=== PATIENT | female | born 1990 | race Caucasian/White ===

== ENCOUNTER 2017-06-19 19:45 | Observation (INO) | payer OTHER ==
[2017-06-19 20:48] LABS: Amphetamine,Urine NEG. (NEGATIVE); Barbiturate,Urine NEG. (NEGATIVE); Benzodiazepine,Urine NEG. (NEGATIVE); Cocaine,Urine NEG. (NEGATIVE); Methadone,Urine NEG. (NEGATIVE); Opiate,Urine NEG. (NEGATIVE); PCP,Urine NEG. (NEGATIVE); THC,Urine NEG. (NEGATIVE)
[2017-06-19] MEDS ORDERED: Sodium Chloride 0.9% 1000 ML 1,000 ML IV STA (21:11)
[2017-06-19 21:17] LABS: Appearance SLIGHTLY CLOUDY (CLEAR); Bilirubin NEGATIVE (NEGATIVE); Blood TRACE NON-HEM Ery/ul (0-5); Glucose NEGATIVE (NEGATIVE); Ketones NEGATIVE (NEGATIVE); Leukocyte Esterase NEGATIVE (NEGATIVE); Nitrite NEGATIVE (NEGATIVE); Ph 7.5 (5-6); Protein,Urine Dip TRACE (Negative); Urobilinogen NORMAL mg/dL (0-1)
[2017-06-19 21:18] LABS: Bacteria RARE /HPF (NEGATIVE); Epithelial Cells FEW /HPF (FEW); WBC 0-2 /HPF (0-5)
[2017-06-19] MEDS ORDERED: BRETHINE 1 MG/ML SQ PRN (22:27)
[2017-06-19] MEDS: Lactated Ringers 1,000 ML IV SCH (22:34)
[2017-06-19] MEDS: PROCARDIA 10 MG PO SCH (23:11)
[2017-06-20] MEDS ORDERED: TYLENOL 325 MG PO PRN (00:58)
[2017-06-20] MEDS: Lactated Ringers 1,000 ML IV SCH (06:33)
[2017-06-20] MEDS: PROCARDIA 10 MG PO SCH (07:39)
[2017-06-20] MEDS ORDERED: Celestone Soluspan 6MG/ML IM ONE (08:51)
[2017-06-20 10:30] VITALS: BP 130/66; PULSE 96
== END 2017-06-20 09:15 | disposition home or self-care (01) ==
LOC: UNDOADMOB 19:45 → OB 19:45 → UNDODISOB 06-20 09:15
PROVIDERS: ADMIT Family Medicine; ATTEND Family Medicine
DX: Z34.83 Encounter for supervision of other normal pregnancy, third trimester (principal)
CPT/HCPCS: 80307; 81000; G0378; J0702; A9270-GY

== ENCOUNTER 2017-06-25 10:04 | Observation (INO) | payer OTHER ==
[2017-06-25] MEDS ORDERED: Lactated Ringers 1,000 ML IV ONE (13:03)
[2017-06-25] MEDS ORDERED: BRETHINE 1 MG/ML SQ ONE (13:03)
[2017-06-25] MEDS ORDERED: Zofran 4 MG/2 ML VIAL IV ONE (13:37)
[2017-06-25] MEDS ORDERED: PROCARDIA 10 MG PO ONE (14:29)
[2017-06-25 16:00] VITALS: BP 128/73; PULSE 108
== END 2017-06-25 15:55 | disposition home or self-care (01) ==
LOC: OB 10:04
PROVIDERS: ADMIT Family Medicine; ATTEND Family Medicine
DX: Z34.83 Encounter for supervision of other normal pregnancy, third trimester (principal)
CPT/HCPCS: G0378; J2405; A9270-GY

== ENCOUNTER 2017-07-30 09:55 | Observation (INO) | payer OTHER ==
[2017-07-30 10:54] VITALS: BP 124/75; PULSE 104
--- NOTE | 2017-07-30 11:07 | XRAY ---
Indication: Evaluate LAURA. Limited OB ultrasound performed to evaluate LAURA. Four-quadrant LAURA is 13.6 cm, previously 19 cm on June 09, 2017.
== END 2017-07-30 10:45 | disposition home or self-care (01) ==
LOC: OB 09:55
PROVIDERS: ADMIT Family Medicine; ATTEND Family Medicine
DX: Z34.83 Encounter for supervision of other normal pregnancy, third trimester (principal)
CPT/HCPCS: 76815; G0378; 59025

== ENCOUNTER 2017-08-06 09:54 | Inpatient (IN) | payer OTHER ==
[2017-08-06] MEDS: Lactated Ringers 1,000 ML IV SCH ×2 (12:00→13:25)
[2017-08-06] MEDS ORDERED: BICITRA 30 ML CUP PO SCH (12:45)
[2017-08-06] MEDS ORDERED: Pepcid 20 MG VIAL IV SCH (12:45)
[2017-08-06] MEDS ORDERED: Reglan 10 MG/2 ML IV SCH (12:45)
[2017-08-06] MEDS ORDERED: CEFAZOLIN 2 GM-D5W BAG** 2 GM/50 ML ML IV SCH (13:00)
[2017-08-06] MEDS ORDERED: KEFZOL 1 GM ONE (13:18)
[2017-08-06] MEDS ORDERED: Lactated Ringers 1,000 ML IV ONE (13:19)
[2017-08-06 13:59] LABS: Hematocrit 29.3 % (35-47); Hemoglobin 9.4 gm/dl (12.0-16.0); Mean Cell Volume 82.5 fl (78-100); Mean Corpuscular Hgb Concent. 32.1 g/dl (32-36); Mean Platelet Volume 9.9 fl (6-9.5); Platelet Count 225 K/mm3 (150-450); Red Blood Count 3.55 M/mm3 (4.1-5.4); White Blood Count 9.4 K/mm3 (4.0-10.5)
[2017-08-06] MEDS ORDERED: Sodium Chloride 0.9% 10 ML FLUSH Syringe IJ PRN (14:04)
[2017-08-06] MEDS ORDERED: CORTISONE 1% CREAM TP PRN (14:04)
[2017-08-06] MEDS ORDERED: TUCKS TP PRN (14:04)
[2017-08-06] MEDS ORDERED: Anucort-HC SUPPOSITORY PR PRN (14:04)
[2017-08-06] MEDS ORDERED: Mylicon 80MG PO PRN (14:04)
[2017-08-06] MEDS ORDERED: Dulcolax 10 MG SUPP PR PRN (14:04)
[2017-08-06] MEDS ORDERED: LANSINOH 40 GM TOP PRN (14:04)
[2017-08-06] MEDS ORDERED: TYLENOL EXTRA STRENGTH 500 MG PO PRN (14:04)
[2017-08-06] MEDS ORDERED: Ambien 10 MG PO PRN (14:04)
[2017-08-06 14:08] LABS: Mean Corpuscular Hemoglobin 26.4 pg (26-32)
[2017-08-06 14:13] LABS: PTT 26.7 SECONDS (25.3-37.0)
[2017-08-06 14:47] LABS: ABO TYPING A; Antibody Screen NEGATIVE (NEGATIVE); RH TYPING POSITIVE
[2017-08-06 14:58] LABS: Appearance CLEAR (CLEAR); Glucose 250 mg/dL (NEGATIVE); Ketones NEGATIVE (NEGATIVE); Leukocyte Esterase NEGATIVE (NEGATIVE); Nitrite NEGATIVE (NEGATIVE); Protein,Urine Dip NEGATIVE (Negative)
[2017-08-06 14:59] LABS: Bilirubin NEGATIVE (NEGATIVE); Blood NEGATIVE Ery/ul (0-5); Urobilinogen NORMAL mg/dL (0-1)
[2017-08-06] MEDS ORDERED: Nubain 10 MG/ML IV PRN (15:00)
[2017-08-06] MEDS ORDERED: HOLD NARCOTIC ANALGESICS AND SEDATIVES X24 HR MC PRN (15:00)
[2017-08-06] MEDS ORDERED: CLARITIN 10 MG PO PRN (15:00)
[2017-08-06] MEDS ORDERED: BENADRYL 50 MG/ML IV PRN (15:00)
[2017-08-06] MEDS ORDERED: Narcan 0.4 MG/ML IV PRN (15:00)
[2017-08-06] MEDS ORDERED: DEMEROL 50 MG IV PRN (15:00)
[2017-08-06] MEDS ORDERED: MORPHINE SULFATE 2 MG INJ IV PRN (15:00)
[2017-08-06 15:27] LABS: Amphetamine,Urine NEGATIVE (NEGATIVE); Barbiturate,Urine NEGATIVE (NEGATIVE); Benzodiazepine,Urine NEGATIVE (NEGATIVE); Cocaine,Urine NEGATIVE (NEGATIVE); Methadone,Urine NEGATIVE (NEGATIVE); Opiate,Urine NEGATIVE (NEGATIVE); PCP,Urine NEGATIVE (NEGATIVE); THC,Urine NEGATIVE (NEGATIVE)
--- NOTE | 2017-08-06 15:38 | OP ---
SURGERY DATE/TIME: 08/06/2017 8885 PREOPERATIVE DIAGNOSES: 1) History of prior section. 2) Term intrauterine in early labor. POSTOPERATIVE DIAGNOSES: 1) History of prior section. 2) Term intrauterine in early labor. PROCEDURE: Repeat low transverse section. SURGEON: Flash Velasquez M.D. ESTIMATED BLOOD LOSS: 400 cc. IV FLUIDS: 1300 cc of crystalloid. URINE OUTPUT: 150 cc of clear straw-colored urine. ANESTHESIA: Spinal by Luis Daniel Westbrook CRNA. SPECIMENS: None. DESCRIPTION OF PROCEDURE: After informed written consent was obtained, the patient was taken to the operating room. She underwent spinal anesthesia and was prepped and draped in the usual sterile fashion. Adequate level of anesthesia was confirmed. Then a low transverse skin incision was made by knife and carried down through the subcutaneous fat to the level of the fascia. The fascia was nicked on both sides of the midline and extended in horizontal fashion with curved Kilpatrick scissors. The superior free edge of the fascia was grasped with Linda clamps and the underlying rectus muscles were dissected free. The same was repeated inferiorly. Next, the peritoneal cavity was carefully opened and extended in horizontal fashion. Bladder flap was created and reflected over the lower uterine segment. A horizontal uterine incision was made by knife and carried down to the level of the amniotic membranes which were artificially ruptured. There was clear fluid encountered. A viable male infant was delivered from the vertex presentation. There was a loose nuchal cord x1 which was reduced prior to delivery. There was a strong cry immediately upon delivery. The oropharynx and nares were bulb suctioned free. The cord was clamped and cut and the baby was handed off to the awaiting nursery team. The placenta was removed from the uterine cavity and the uterus was exteriorized. The uterine cavity was sponge curetted clean with lap sponge. Next, the uterine incision was closed with #1 chromic in a running locked fashion with good closure and good hemostasis. The posterior cul-de-sac was wiped free of blood and clot with moist lap sponge and the uterus was returned to the peritoneal cavity. Lateral gutters were wiped free of blood and clot. Again the uterine incision was inspected and noted to be hemostatic. Next, the fascia was closed with 0 Vicryl in a running fashion with good closure and good hemostasis. Subcutaneous fat was irrigated with warm, sterile saline and any areas of bleeding were cauterized with electrocautery. Finally, the skin layer was closed with 4-0 undyed Vicryl in a running subcuticular fashion. Steri-Strips and occlusive dressing were placed over the incision. The patient was transferred to the recovery in good condition.
[2017-08-06] MEDS ORDERED: Adacel Vial IM ONE (16:00)
[2017-08-06] MEDS ORDERED: M-M-R II Vaccine With Diluent SQ ONE (16:00)
[2017-08-06] MEDS ORDERED: MARCAINE 0.5%-EPI 1:200,000 VL IJ ONE (16:42)
[2017-08-06] MEDS ORDERED: PHENYLEPHRINE HCL IV ONE (16:42)
[2017-08-06] MEDS ORDERED: Zofran 4 MG/2 ML VIAL IV ONE (16:42)
[2017-08-06] MEDS ORDERED: TORAdol 30 mg Injection IJ ONE (16:42)
[2017-08-06] MEDS ORDERED: Pitocin 10 UNITS/ML IV ONE (16:42)
[2017-08-06] MEDS: Zofran 4 MG/2 ML VIAL IV PRN ×2 (17:19→20:49)
[2017-08-06] MEDS: Dextrose 5%-Lr IV Solution 1000 ML 1,000 ML IV SCH (20:50)
[2017-08-06] MEDS: Colace 100 MG PO SCH (22:00)
[2017-08-06] MEDS: PERCOCET TABLET 5/325MG PO PRN (22:13)
[2017-08-07] MEDS: PERCOCET TABLET 5/325MG PO PRN ×2 (05:01→12:35)
[2017-08-07] MEDS: Dextrose 5%-Lr IV Solution 1000 ML 1,000 ML IV SCH ×2 (05:29→13:30)
[2017-08-07 05:38] VITALS: O2SAT 100
[2017-08-07 05:59] LABS: BASOPHIL % 0.1 % (0.0-0.4); Basophil (Absolute #) 0.01 (0-0.4); Eosinophil % 0.5 % (0.00-5.0); Eosinophil (Absolute #) 0.06 (0-0.5); Granulocyte Absolute (ANC) 9.24 (1.4-6.9); Granulocytes % 77.9 % (36.0-66.0); Hemoglobin 8.9 gm/dl (12.0-16.0); Lymphocytes % 12.7 % (24.0-44.0); Mean Cell Volume 83.8 fl (78-100); Mean Corpuscular Hemoglobin 26.6 pg (26-32); Mean Corpuscular Hgb Concent. 31.8 g/dl (32-36); Mean Platelet Volume 10.3 fl (6-9.5); Monocyte (Absolute #) 1.04 (0.0-1.3); Monocytes % 8.8 % (0.0-12.0); Platelet Count 210 K/mm3 (150-450); Red Blood Count 3.34 M/mm3 (4.1-5.4); Red Cell Distribution Width 16.6 % (11.5-14.0); White Blood Count 11.9 K/mm3 (4.0-10.5)
[2017-08-07] MEDS: FERREX 150 PO SCH (11:02)
[2017-08-07] MEDS: Colace 100 MG PO SCH ×2 (11:02→22:55)
[2017-08-07] MEDS: MOTRIN 400 MG PO PRN ×2 (11:02→19:58)
[2017-08-07] MEDS: Lactated Ringers 1,000 ML IV SCH ×2 (13:30→13:31)
[2017-08-07] MEDS: SYNTHROID 25 MCG PO SCH (14:10)
[2017-08-07] MEDS: THERAGRAN MULTIVITAMIN PO SCH (14:10)
[2017-08-07] MEDS ORDERED: Phenergan 25 MG INJ IM PRN (15:00)
[2017-08-07] MEDS ORDERED: DEMEROL 75 MG IM PRN (15:00)
[2017-08-07] MEDS: NORCO 5/325 MG PO PRN ×2 (18:53→22:55)
[2017-08-08] MEDS: MOTRIN 400 MG PO PRN ×2 (02:11→08:16)
[2017-08-08] MEDS: NORCO 5/325 MG PO PRN ×3 (05:01→15:33)
[2017-08-08] MEDS: Colace 100 MG PO SCH (08:16)
[2017-08-08] MEDS: THERAGRAN MULTIVITAMIN PO SCH (08:16)
[2017-08-08] MEDS: FERREX 150 PO SCH (08:16)
[2017-08-08] MEDS: SYNTHROID 25 MCG PO SCH (08:17)
[2017-08-08] MEDS ORDERED: NON-FORMULARY ITEM (Prenatal Vits W-Ca,Fe,Fa(<1mg) [Prenatal] 1 EACH) PO SCH (10:00)
--- NOTE | 2017-08-08 11:02 | PCM.DS ---
Discharge Summary Date of Admission: 08/06/17 12:43 Admitting Physician: TIFFANY STEINER Consults: Consults on Case 08/06/17 12:43 Notify Anesthesia Provider ROUTINE Notify Physician OF ADMISSION 08/06/17 14:04 Notify Anesthesia Provider PRN 08/06/17 14:05 Notify Physician ROUTINE Primary Care Provider: TIFFANY STEINER Allergies Allergies latex Allergy (Severe, Verified 07/30/17 10:08) Itchy Eyes Hospital Summary - Hospital Course Hospital Course: Pt delivered viable male via repeat c/section; urgent c/section as mom in active labor. Recovery has been unremarkable. Bleeding is decreasing. Denies dizziness. taking norco and ibuprofen for pain relief. - Vitals & Intake/Output Vital Signs: Vital Signs Temperature 97.4 F 08/08/17 02:00 Pulse Rate 80 08/08/17 02:00 Respiratory Rate 18 08/08/17 02:00 Blood Pressure 119/75 08/08/17 02:00 O2 Sat by Pulse Oximetry 100 08/07/17 11:00 Intake & Output: Intake & Output 08/05/17 08/06/17 08/07/17 08/08/17 11:59 11:59 11:59 11:59 Intake Total 2643 Output Total 1400 Balance 1243 Weight 83.007 kg - Lab Result Diagrams: 08/07/17 05:15 Micro Results-Entire Visit: Microbiology 08/06/17 15:31 Urine Culture - Final Catherized NO GROWTH Discharge Exam General Appearance: no apparent distress, alert Neurologic Exam: oriented x 3, cooperative Skin Exam: normal color, warm, dry, No rash Eye Exam: eyes nml inspection Ears, Nose, Throat Exam: moist mucous membranes Neck Exam: normal inspection Respiratory Exam: normal breath sounds, lungs clear, No crackles/rales, No rhonchi, No wheezing Cardiovascular Exam: regular rate/rhythm, normal heart sounds, No murmur Gastrointestinal/Abdomen Exam: soft, other (wound c/d/i. fundus firm under umbilicus) Extremity Exam: normal inspection, No pedal edema, No swelling Back Exam: normal inspection, No rash Final Diagnosis/Problem List - Final Discharge Diagnosis/Problem (1) delivery delivered Current Visit: Yes Status: Acute Assessment & Plan: Recovering well. home on pain meds and ibuprofen. Would make sure she stays on a PPI, has hx erosive gastritis. (2) Anemia Current Visit: Yes Status: Acute Assessment & Plan: home on Fe BID; completely asx. hgb 8.9. - Discharge Disposition: Home, Self-Care Condition: Good Prescriptions: New Docusate Sodium 100 mg [Colace 100 MG] 100 mg PO BID #30 capsule Ferrous Sulfate 325 mg [Feosol 325 mg] 325 mg PO BID #60 tablet Ibuprofen 400 mg PO TID PRN #35 tablet PRN Reason: Pain Hydrocodone/Acetaminophen [Temple 5-325 Tablet] 1 each PO Q4-6HPRN PRN #30 tablet MDD 6 PRN Reason: Severe Pain Omeprazole 20 MG [Prilosec 20 mg] 20 mg PO DAILY #30 capsule. Continue Levothyroxine Sodium 25 Mcg [Synthroid 25 Mcg] 25 mcg PO DAILY Vits W-Ca,Fe,FA(<1Mg) [] 1 each PO DAILY Follow up with: TIFFANY STEINER MD [Primary Care Provider] - 1 Week
[2017-08-08] MEDS ORDERED: Astramorph-Pf 5 MG/10 ML IV ONE (15:49)
[2017-08-08 15:59] VITALS: BP 132/82; PULSE 98
== END 2017-08-08 15:50 | disposition home or self-care (01) | DRG 766 ==
LOC: ICU 09:54 → OBSVTOIN 12:43 → ICU 12:43 → OB 13:10
PROVIDERS: ADMIT Family Medicine; ATTEND Family Medicine
PROC: 10D00Z1 Extraction of Products of Conception, Low, Open Approach (ICD-10-PCS; principal; 2017-08-06)
DX: O34.211 Maternal care for low transverse scar from previous cesarean delivery (principal); Z3A.37 37 weeks gestation of pregnancy; Z37.0 Single live birth; D64.9 Anemia, unspecified
CPT/HCPCS: 36415; 64488; 76937; 80307; 81002; 85025; 85027; 85610; 85730; 86850; 86900; 86901; 87086; 90707; 90715; 94799; G0378; J0690; J1885; J2274; J2370; J2405; J2590; L0625; A9270-GY

== ENCOUNTER 2019-01-25 13:45 | Observation (INO) | payer OTHER ==
[2019-01-25] MEDS ORDERED: Zofran 4 MG/2 ML VIAL IV ONE ×2 (14:15→16:34)
[2019-01-25] MEDS ORDERED: TORAdol 30 mg Injection IV ONE (14:15)
[2019-01-25] MEDS ORDERED: Hydromorphone 1 mg/ml Ampule IV ONE (14:15)
[2019-01-25] MEDS ORDERED: Sodium Chloride 0.9% 1000 ML 1,000 ML IV STA ×2 (14:15→16:07)
[2019-01-25] MEDS ORDERED: TORAdol 30 mg Injection ONE (14:29)
[2019-01-25] MEDS ORDERED: Zofran 4 MG/2 ML VIAL ONE ×2 (14:29→17:12)
[2019-01-25] MEDS ORDERED: Hydromorphone 1 mg/ml Ampule ONE (14:30)
[2019-01-25] MEDS ORDERED: Sodium Chloride 0.9% 1000 ML 1,000 ML ONE ×2 (14:30→16:06)
[2019-01-25 14:34] LABS: Absolute Neutrophil Ct (ANC) 9.38 (1.4-6.9); BASOPHIL % 0.1 % (0.0-0.4); Basophil (Absolute #) 0.01 (0-0.4); Eosinophil % 0.2 % (0.00-5.0); Eosinophil (Absolute #) 0.02 (0-0.5); Hematocrit 32.4 % (35-47); Hemoglobin 10.4 gm/dl (12.0-16.0); Lymphocyte (Absolute #) 0.32 (1.0-4.6); Lymphocytes % 3.2 % (24.0-44.0); Mean Cell Volume 81.4 fl (78-100); Mean Corpuscular Hemoglobin 26.1 pg (26-32); Mean Corpuscular Hgb Concent. 32.1 g/dl (32-36); Mean Platelet Volume 9.4 fl (6-9.5); Monocyte (Absolute #) 0.16 (0.0-1.3); Monocytes % 1.6 % (0.0-12.0); Neutrophil % 94.9 % (36.0-66.0); Platelet Count 321 K/mm3 (150-450); Red Blood Count 3.98 M/mm3 (4.1-5.4); Red Cell Distribution Width 17.3 % (11.5-14.0); White Blood Count 9.9 K/mm3 (4.0-10.5)
[2019-01-25 14:55] LABS: ALBUMIN 4.4 g/dL (3.5-5.0); ALKALINE PHOSPHATASE 82 U/L (38-126); AMYLASE 64 U/L (30-110); ANION GAP 17.9 MEQ/L (5-15); BLOOD UREA NITROGEN 6 mg/dL (7-17); CHLORIDE 100 mmol/L (98-107); Calcium 9.1 mg/dL (8.4-10.2); Carbon Dioxide 23 mmol/L (22-30); Creatinine 1 0.63 mg/dL (0.52-1.04); Glucose 106 mg/dL (74-106); LIPASE 57 U/L (23-300); Potassium 3.7 mmol/L (3.5-5.1); SGOT/AST 23 U/L (14-36); SGPT/ALT 19 U/L (0-35); SODIUM 137 mmol/L (137-145); Total Protein 7.9 g/dL (6.3-8.2)
[2019-01-25 15:04] LABS: Appearance SLIGHTLY CLOUDY (CLEAR); Bacteria MODERATE /HPF (NEGATIVE); Bilirubin NEGATIVE (NEGATIVE); Blood MODERATE Ery/ul (0-5); Epithelial Cells RARE /HPF (FEW); Glucose NEGATIVE (NEGATIVE); Ketones NEGATIVE (NEGATIVE); Leukocyte Esterase MODERATE (NEGATIVE); Mucus SLIGHT /HPF (NEGATIVE); Nitrite NEGATIVE (NEGATIVE); Protein,Urine Dip 30 (Negative); Specific Gravity 1.009 (1.005-1.025); Urobilinogen NEGATIVE mg/dL (0-1); WBC 51-100 /HPF (0-5)
[2019-01-25] MEDS ORDERED: ROCEPHIN 1 Gm-D5w 50 ml Bag** 1 G/50 ML IVPB IV STA (15:29)
--- NOTE | 2019-01-25 15:29 | ERPHSYRPT ---
- History of Present Illness Time Seen by Provider: 01/25/19 13:55 Historian: patient, family Exam Limitations: no limitations Patient Subjective Stated Complaint: pt states back pain since wednesday, pt states that she has vomitted 2 times today, pt c/o dizziness, right side back pain 01/26 Triage Nursing Assessment: pt ambulated into the er, pt shaking with c/o of being cold, temp 101.9, rt flank tenderness, hypertension, tachycardia, pt n/v Physician History: 28 y/o white female presents with fever today and right flank pain for 2 days. vomited today. pt works in doctors office. ua revealed blood and leukocyte esterase. pt denies possibility of being . no sig abd pain. mild pressure with urination Timing/Duration: day(s) (2), gradual onset, worse Quality: pressure Abdominal Pain Onset Location: flank (right) Pain Radiation: no radiation Severity of Pain-Max: moderate Severity of Pain-Current: mild Modifying Factors: Improves With: vomiting Associated Symptoms: fever/chills, nausea, vomiting Previous symptoms: no prior history Allergies/Adverse Reactions: latex Allergy (Severe, Verified 01/25/19 14:10) Itchy Eyes Home Medications: Levothyroxine Sodium 25 Mcg [Synthroid 25 Mcg] 25 mcg PO DAILY 12/18/14 [ History] Alprazolam 0.5 mg [xanAX 0.5 MG] 0.5 mg PO DAILY PRN PRN 01/25/19 [History ] Aripiprazole [Abilify] 20 mg PO DAILY 01/25/19 [History] Hx Tetanus, Diphtheria Vaccination/Date Given: Yes Hx Influenza Vaccination/Date Given: No Hx Pneumococcal Vaccination/Date Given: No Immunizations Up to Date: Yes - Review of Systems Constitutional: Fever Eyes: No Symptoms Ears, Nose, & Throat: No Symptoms Respiratory: No Symptoms Cardiac: No Symptoms Abdominal/Gastrointestinal: Nausea, Vomiting Genitourinary Symptoms: Flank Pain (right) Musculoskeletal: No Symptoms Skin: No Symptoms Neurological: No Symptoms Psychological: No Symptoms Endocrine: No Symptoms Hematologic/Lymphatic: No Symptoms Immunological/Allergic: No Symptoms All Other Systems: Reviewed and Negative - Past Medical History Pertinent Past Medical History: Yes Neurological History: No Pertinent History ENT History: No Pertinent History Cardiac History: Hypertension Respiratory History: No Pertinent History Endocrine Medical History: No Pertinent History Musculoskeletal History: No Pertinent History GI Medical History: No Pertinent History History: No Pertinent History Psycho-Social History: Anxiety, Depression Female Reproductive Disorders: No Pertinent History - Past Surgical History Past Surgical History: Yes Neuro Surgical History: No Pertinent History Cardiac: No Pertinent History Respiratory: No Pertinent History Gastrointestinal: Cholecystectomy Genitourinary: No Pertinent History Musculoskeletal: No Pertinent History Female Surgical History: Section Other Surgical History: 4 c sections - Social History Smoking Status: Former smoker How long have you smoked: 2 YEARS Exposure to second hand smoke: Yes Drug Use: none Patient Lives Alone: No - Female History Hx Last Menstrual Period: 01/06/19 Hx Now: No - Nursing Vital Signs Nursing Vital Signs: Initial Vital Signs Temperature 101.9 F 01/25/19 13:54 Pulse Rate 128 H 01/25/19 13:54 Blood Pressure 162/106 01/25/19 13:54 O2 Sat by Pulse Oximetry 96 01/25/19 13:54 Pain Scale Pain Intensity 7 - Physical Exam General Appearance: mild distress, alert Eye Exam: PERRL/EOMI, eyes nml inspection Ears, Nose, Throat Exam: normal ENT inspection, moist mucous membranes Neck Exam: normal inspection, non-tender, supple, full range of motion Respiratory Exam: normal breath sounds, lungs clear, airway intact, No chest tenderness, No respiratory distress Cardiovascular Exam: regular rate/rhythm, normal heart sounds, normal peripheral pulses Gastrointestinal/Abdomen Exam: soft, normal bowel sounds, No tenderness Pelvic Exam: not done Rectal Exam: not done Back Exam: normal inspection, normal range of motion, CVA tenderness (right), No vertebral tenderness Extremity Exam: normal inspection, normal range of motion, pelvis stable Neurologic Exam: alert, oriented x 3, cooperative, 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 Skin Exam: normal color, warm, dry Lymphatic Exam: adenopathy SpO2 Interpretation: normal SpO2: 96 O2 Delivery: Room Air Ordered Tests: Active Orders 24 hr Category Date Time Status IV Insertion STAT Care 01/25/19 14:15 Active ABDOMEN AND PELVIS W/0 CONTRAS [CT] Stat Exams 01/25/19 14:16 Completed AMYLASE Stat Lab 01/25/19 14:30 Completed CBC W DIFF Stat Lab 01/25/19 14:30 Completed CMP Stat Lab 01/25/19 14:30 Completed CULTURE,URINE Stat Lab 01/25/19 14:50 Received HCG,QUALITATIVE URINE Stat Lab 01/25/19 14:50 Completed LIPASE Stat Lab 01/25/19 14:30 Completed UA W/RFX UR CULTURE Stat Lab 01/25/19 14:50 Completed Transfer Order Routine Transfer 01/25/19 Ordered Medication Summary Generic Name Dose Route Start Last Admin Trade Name Freq PRN Reason Stop Dose Admin Sodium Chloride 1,000 mls @ 999 mls/hr 01/25/19 16:07 01/25/19 16:09 Sodium Chloride 0.9% 1000 Ml IV 01/25/19 17:07 999 mls/hr .Q1H1M STA Administration Discontinued Medications Generic Name Dose Route Start Last Admin Trade Name Freq PRN Reason Stop Dose Admin Ciprofloxacin 500 mg 01/25/19 15:30 01/25/19 15:40 Cipro 500 Mg PO 01/25/19 15:31 500 mg STAT ONE Administration Ciprofloxacin Confirm 01/25/19 15:33 Cipro 500 Mg Administered 01/25/19 15:34 Dose 500 mg .ROUTE .STK-MED ONE Hydromorphone HCl 1 mg 01/25/19 14:15 01/25/19 14:37 Hydromorphone 1 Mg/Ml Ampule IV 01/25/19 14:16 1 mg STAT ONE Administration Hydromorphone HCl Confirm 01/25/19 14:30 Hydromorphone 1 Mg/Ml Ampule Administered 01/25/19 14:31 Dose 1 mg .ROUTE .STK-MED ONE Sodium Chloride 1,000 mls @ 999 mls/hr 01/25/19 14:15 01/25/19 15:58 Sodium Chloride 0.9% 1000 Ml IV 01/25/19 15:15 Infused .Q1H1M STA Infusion Sodium Chloride Confirm 01/25/19 14:30 Sodium Chloride 0.9% 1000 Ml Administered 01/25/19 14:31 Dose 1,000 mls @ ud .ROUTE .STK-MED ONE Ceftriaxone Sodium/Dextrose 1 g in 50 mls @ 100 mls/hr 01/25/19 15:29 16:17 Rocephin 1 Gm-D5w 50 Ml Bag IV 01/25/19 15:58 Infused STAT STA Infusion Ceftriaxone Sodium/Dextrose Confirm 01/25/19 15:34 Rocephin 1 Gm-D5w 50 Ml Bag Administered 01/25/19 15:35 Dose 1 g in 50 mls @ ud IV .STK-MED ONE Sodium Chloride Confirm 01/25/19 16:06 Sodium Chloride 0.9% 1000 Ml Administered 01/25/19 16:07 Dose 1,000 mls @ ud .ROUTE .STK-MED ONE Ketorolac Tromethamine 30 mg 01/25/19 14:15 01/25/19 14:36 Toradol 30 Mg Injection IV 01/25/19 14:16 30 mg STAT ONE Administration Ketorolac Tromethamine Confirm 01/25/19 14:29 Toradol 30 Mg Injection Administered 01/25/19 14:30 Dose 30 mg .ROUTE .STK-MED ONE Ondansetron HCl 4 mg 01/25/19 14:15 01/25/19 14:35 Zofran 4 Mg/2 Ml Vial IV 01/25/19 14:16 4 mg STAT ONE Administration Ondansetron HCl Confirm 01/25/19 14:29 Zofran 4 Mg/2 Ml Vial Administered 01/25/19 14:30 Dose 4 mg .ROUTE .STK-MED ONE Ondansetron HCl 4 mg 01/25/19 16:34 Zofran 4 Mg/2 Ml Vial IV 01/25/19 16:35 STAT ONE Lab/Rad Data: Laboratory Result Diagrams 01/25/19 14:30 01/25/19 14:30 Laboratory Results 01/25/19 01/25/19 01/25/19 Range/Units 14:50 14:50 14:30 WBC (4.0-10.5) K/mm3 RBC (4.1-5.4) M/mm3 Hgb (12.0-16.0) gm/dl Hct (35-47) % MCV (78-100) fl MCH (26-32) pg MCHC (32-36) g/dl RDW (11.5-14.0) % Plt Count (150-450) K/mm3 MPV (6-9.5) fl Gran % (36.0-66.0) % Eos # (Auto) (0-0.5) Absolute Lymphs (auto) (1.0-4.6) Absolute Monos (auto) (0.0-1.3) Lymphocytes % (24.0-44.0) % Monocytes % (0.0-12.0) % Eosinophils % (0.00-5.0) % Basophils % (0.0-0.4) % Absolute Granulocytes (1.4-6.9) Basophils # (0-0.4) Sodium 137 (137-145) mmol/L Potassium 3.7 (3.5-5.1) mmol/L Chloride 100 (98-107) mmol/L Carbon Dioxide 23 (22-30) mmol/L Anion Gap 17.9 H (5-15) MEQ/L BUN 6 L (7-17) mg/dL Creatinine 0.63 (0.52-1.04) mg/dL Estimated GFR > 60.0 ML/MIN Glucose 106 (74-106) mg/dL Calcium 9.1 (8.4-10.2) mg/dL Total Bilirubin 1.00 (0.2-1.3) mg/dL AST 23 (14-36) U/L ALT 19 (0-35) U/L Alkaline Phosphatase 82 (38-126) U/L Serum Total Protein 7.9 (6.3-8.2) g/dL Albumin 4.4 (3.5-5.0) g/dL Amylase 64 (30-110) U/L Lipase 57 (23-300) U/L Urine Color YELLOW (YELLOW) Urine Appearance SLIGHTLY CLOUDY (CLEAR) Urine pH 8.0 (5-6) Ur Specific Collins 1.009 (1.005-1.025) Urine Protein 30 (Negative) Urine Ketones NEGATIVE (NEGATIVE) Urine Blood MODERATE (0-5) Flaquito/ul Urine Nitrite NEGATIVE (NEGATIVE) Urine Bilirubin NEGATIVE (NEGATIVE) Urine Urobilinogen NEGATIVE (0-1) mg/dL Ur Leukocyte Esterase MODERATE (NEGATIVE) Urine WBC (Auto) 51-100 (0-5) /HPF Urine RBC (Auto) 3-5 (0-2) /HPF U Epithel Cells (Auto) RARE (FEW) /HPF Urine Bacteria (Auto) MODERATE (NEGATIVE) /HPF Urine Mucus (Auto) SLIGHT (NEGATIVE) /HPF Urine Culture Reflexed YES (NO) Urine Glucose NEGATIVE (NEGATIVE) mg/dL Urine HCG, Qual NEGATIVE (Negative) Slides for Path Review 01/25/19 Range/Units 14:30 WBC 9.9 (4.0-10.5) K/mm3 RBC 3.98 L (4.1-5.4) M/mm3 Hgb 10.4 L (12.0-16.0) gm/dl Hct 32.4 L (35-47) % MCV 81.4 (78-100) fl MCH 26.1 (26-32) pg MCHC 32.1 (32-36) g/dl RDW 17.3 H (11.5-14.0) % Plt Count 321 (150-450) K/mm3 MPV 9.4 (6-9.5) fl Gran % 94.9 H (36.0-66.0) % Eos # (Auto) 0.02 (0-0.5) Absolute Lymphs (auto) 0.32 L (1.0-4.6) Absolute Monos (auto) 0.16 (0.0-1.3) Lymphocytes % 3.2 L (24.0-44.0) % Monocytes % 1.6 (0.0-12.0) % Eosinophils % 0.2 (0.00-5.0) % Basophils % 0.1 (0.0-0.4) % Absolute Granulocytes 9.38 H (1.4-6.9) Basophils # 0.01 (0-0.4) Sodium (137-145) mmol/L Potassium (3.5-5.1) mmol/L Chloride (98-107) mmol/L Carbon Dioxide (22-30) mmol/L Anion Gap (5-15) MEQ/L BUN (7-17) mg/dL Creatinine (0.52-1.04) mg/dL Estimated GFR ML/MIN Glucose (74-106) mg/dL Calcium (8.4-10.2) mg/dL Total Bilirubin (0.2-1.3) mg/dL AST (14-36) U/L ALT (0-35) U/L Alkaline Phosphatase (38-126) U/L Serum Total Protein (6.3-8.2) g/dL Albumin (3.5-5.0) g/dL Amylase (30-110) U/L Lipase (23-300) U/L Urine Color (YELLOW) Urine Appearance (CLEAR) Urine pH (5-6) Ur Specific Collins (1.005-1.025) Urine Protein (Negative) Urine Ketones (NEGATIVE) Urine Blood (0-5) Flaquito/ul Urine Nitrite (NEGATIVE) Urine Bilirubin (NEGATIVE) Urine Urobilinogen (0-1) mg/dL Ur Leukocyte Esterase (NEGATIVE) Urine WBC (Auto) (0-5) /HPF Urine RBC (Auto) (0-2) /HPF U Epithel Cells (Auto) (FEW) /HPF Urine Bacteria (Auto) (NEGATIVE) /HPF Urine Mucus (Auto) (NEGATIVE) /HPF Urine Culture Reflexed (NO) Urine Glucose (NEGATIVE) mg/dL Urine HCG, Qual (Negative) Slides for Path Review YES - Progress Progress: improved, re-examined Progress Note: 01/25/19 15:40 pt feeling better. 01/25/19 15:57 ct abd/pelvis-right renal inflammation/nephritis. mild perinephric stranding 01/25/19 16:44 although pt was feeling better, she had another episode of vomiting. i called dr. alas and he accepts pt to be placed in observation. pt agrees. Discussed with : Chris Counseled pt/family regarding: lab results, diagnosis, need for follow-up, rad results - Departure Departure Disposition: Observation Clinical Impression: UTI (urinary tract infection), Fever, Pyelonephritis Condition: Stable Critical Care Time: No Referrals: TIFFANY ALAS MD [Primary Care Provider] - Additional Instructions: drink plenty of fluids. take medications as prescribed. follow up with primary doctor for persistent symptoms Prescriptions: Ciprofloxacin [Cipro 500 MG] 500 mg PO BID #14 tablet Hydrocodone/APAP 5-325 Tab^^^ [Cocoa 5-325 Tablet^^^] 1 tab PO Q8H PRN #6 tablet MDD 3 PRN Reason: Pain
[2019-01-25] MEDS ORDERED: Cipro 500 MG PO ONE (15:30)
[2019-01-25] MEDS ORDERED: Cipro 500 MG ONE (15:33)
[2019-01-25] MEDS ORDERED: ROCEPHIN 1 Gm-D5w 50 ml Bag** 1 G/50 ML IVPB IV ONE (15:34)
--- NOTE | 2019-01-25 15:48 | XRAY ---
Indication: Right abdomen/flank pain 3 days. Multiple contiguous axial images obtained through the abdomen and pelvis without contrast as ordered. Comparison: February 15, 2015. Lung bases are clear. Heart is not enlarged. Noncontrasted stomach and bowel loops appear nonobstructed. Normal appendix. There has been interval cholecystectomy. No free fluid/air. Right kidney is now edematous with minimal perinephric stranding suggesting underlying inflammation/nephritis. Slightly enlarged 1.5 cm right mid renal cortical cyst. Stable mild fatty liver. Spleen remains enlarged measuring 13.1 cm in greatest axial dimension. 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 Remaining liver, pancreas, spleen, adrenal glands, kidneys, ureters, bladder, uterus, and aorta appear unremarkable for noncontrast exam. Osseous structures intact. Impression: 1. New edematous right kidney with minimal perinephric stranding. Rule out nephritis. 1.5 cm right cyst. 2. Again incidental splenomegaly, fatty liver, and duplicated IVC. CTDI 17.36
[2019-01-25 15:58] LABS: Slide Review 1 YES
[2019-01-25] MEDS ORDERED: Zofran 4 MG/2 ML VIAL IV PRN (17:08)
[2019-01-25] MEDS: Sodium Chloride 0.9% 1000 ML 1,000 ML IV SCH (19:37)
[2019-01-25] MEDS: TYLENOL 325 MG PO PRN (20:24)
[2019-01-26] MEDS ORDERED: TYLENOL 325 MG ONE (05:14)
[2019-01-26] MEDS: TYLENOL 325 MG PO PRN ×3 (05:17→19:58)
[2019-01-26] MEDS: Zofran 4 MG/2 ML VIAL IV PRN ×2 (05:20→15:33)
[2019-01-26] MEDS ORDERED: DILAUDID 2 MG INJECTION ONE (05:48)
[2019-01-26] MEDS ORDERED: Sodium Chloride 0.9% 1000 ML 1,000 ML ONE (05:49)
[2019-01-26] MEDS: DILAUDID 2 MG INJECTION IV PRN ×4 (05:53→21:40)
[2019-01-26] MEDS: Sodium Chloride 0.9% 1000 ML 1,000 ML IV SCH ×2 (05:54→16:15)
[2019-01-26] MEDS ORDERED: xanAX 0.5 MG PO PRN (07:38)
--- NOTE | 2019-01-26 08:28 | PCM.HP ---
History of Present Illness - Chief Complaint Chief Complaint: PYELONEPHRITIS History of Present Illness: is a 28 year old female who presented to the ER yesterday, she developed right flank pain 2 days prior to admission with some pressure in her pelvis. she has had some chills and vomiting, uncertain of fever at home but was febrile on presentation. - Review of Systems Constitutional: Fever, Chills Eyes: No Symptoms Respiratory: No Cough, No Short Of Breath Cardiac: No Chest Pain, No Edema, No Syncope Genitourinary Symptoms: Dysuria Musculoskeletal: Back Pain Skin: No Rash All Other Systems: Reviewed and Negative Medications & Allergies Home Medications: Home Medication List Levothyroxine Sodium 25 Mcg [Synthroid 25 Mcg] 25 mcg PO DAILY 12/18/14 [ History Confirmed 01/25/19] Alprazolam 0.5 mg [xanAX 0.5 MG] 0.5 mg PO DAILY PRN PRN 01/25/19 [ History Confirmed 01/25/19] Desvenlafaxine Succinate [Desvenlafaxine Succinate ER] 50 mg PO DAILY 01/25/19 [ History Confirmed 01/25/19] Allergies/Adverse Reactions: Allergies Allergy/AdvReac Type Severity Reaction Status Date / Time latex Allergy Severe Itchy Eyes Verified 01/25/19 14:10 - Past Medical History Past Medical History: Yes Neurological History: No Pertinent History ENT History: No Pertinent History Cardiac History: Hypertension Respiratory History: No Pertinent History Endocrine Medical History: No Pertinent History Musculoskelatal History: No Pertinent History GI Medical History: No Pertinent History History: No Pertinent History Pyscho-Social History: Anxiety, Depression Reproductive Disorders: No Pertinent History - Female History Hx Last Menstrual Period: 01/06/19 Are you now?: No - Past Surgical History Past Surgical History: Yes Neuro Surgical History: No Pertinent History Cardiac History: No Pertinent History Respiratory Surgery: No Pertinent History GI Surgical History: Cholecystectomy Genitourinary Surgical Hx: No Pertinent History Musculskeletal Surgical Hx: No Pertinent History Female Surgical History: Section Other Surgical History: 4 c sections - Social History Smoking Status: Never smoker How long have you smoked: 2 YEARS Exposure to second hand smoke: Yes Alcohol: None Drug Use: none - Physical Exam Vital Signs: Vital Signs - 24 hr Temp Pulse Resp BP Pulse Ox 01/26/19 07:00 97.8 F 84 16 121/57 96 01/26/19 03:53 98.3 F 85 18 106/59 99 01/25/19 23:44 97.8 F 71 17 119/65 98 01/25/19 19:47 97.8 F 80 17 120/71 100 01/25/19 17:30 97.9 F 79 18 123/77 100 01/25/19 17:29 97.6 F 79 18 123/77 100 01/25/19 16:50 96 01/25/19 16:22 83 121/79 100 01/25/19 15:27 99.3 F 96 H 128/71 99 01/25/19 13:54 101.9 F 128 H 162/106 96 General Appearance: mild distress, alert Ears, Nose, Throat Exam: normal ENT inspection, TMs normal, pharynx normal, moist mucous membranes Respiratory Exam: normal breath sounds, lungs clear, No respiratory distress Cardiovascular Exam: regular rate/rhythm, normal heart sounds, normal peripheral pulses Gastrointestinal/Abdomen Exam: soft, normal bowel sounds, No tenderness, No mass Back Exam: CVA tenderness (right) Skin Exam: normal color, warm, dry, No rash Results - Labs Lab/Micro Results: Lab Results-Last 24 Hours 01/25/19 01/25/19 01/25/19 Range/Units 14:30 14:30 14:50 WBC 9.9 (4.0-10.5) K/mm3 RBC 3.98 L (4.1-5.4) M/mm3 Hgb 10.4 L (12.0-16.0) gm/dl Hct 32.4 L (35-47) % MCV 81.4 (78-100) fl MCH 26.1 (26-32) pg MCHC 32.1 (32-36) g/dl RDW 17.3 H (11.5-14.0) % Plt Count 321 (150-450) K/mm3 MPV 9.4 (6-9.5) fl Gran % 94.9 H (36.0-66.0) % Eos # (Auto) 0.02 (0-0.5) Absolute Lymphs (auto) 0.32 L (1.0-4.6) Absolute Monos (auto) 0.16 (0.0-1.3) Lymphocytes % 3.2 L (24.0-44.0) % Monocytes % 1.6 (0.0-12.0) % Eosinophils % 0.2 (0.00-5.0) % Basophils % 0.1 (0.0-0.4) % Absolute Granulocytes 9.38 H (1.4-6.9) Basophils # 0.01 (0-0.4) Sodium 137 (137-145) mmol/L Potassium 3.7 (3.5-5.1) mmol/L Chloride 100 (98-107) mmol/L Carbon Dioxide 23 (22-30) mmol/L Anion Gap 17.9 H (5-15) MEQ/L BUN 6 L (7-17) mg/dL Creatinine 0.63 (0.52-1.04) mg/dL Estimated GFR > 60.0 ML/MIN Glucose 106 (74-106) mg/dL Calcium 9.1 (8.4-10.2) mg/dL Total Bilirubin 1.00 (0.2-1.3) mg/dL AST 23 (14-36) U/L ALT 19 (0-35) U/L Alkaline Phosphatase 82 (38-126) U/L Serum Total Protein 7.9 (6.3-8.2) g/dL Albumin 4.4 (3.5-5.0) g/dL Amylase 64 (30-110) U/L Lipase 57 (23-300) U/L Urine Color YELLOW (YELLOW) Urine Appearance SLIGHTLY CLOUDY (CLEAR) Urine pH 8.0 (5-6) Ur Specific [place] 1.009 (1.005-1.025) Urine Protein 30 (Negative) Urine Ketones NEGATIVE (NEGATIVE) Urine Blood MODERATE (0-5) [place]/ul Urine Nitrite NEGATIVE (NEGATIVE) Urine Bilirubin NEGATIVE (NEGATIVE) Urine Urobilinogen NEGATIVE (0-1) mg/dL Ur Leukocyte Esterase MODERATE (NEGATIVE) Urine WBC (Auto) 51-100 (0-5) /HPF Urine RBC (Auto) 3-5 (0-2) /HPF U Epithel Cells (Auto) RARE (FEW) /HPF Urine Bacteria (Auto) MODERATE (NEGATIVE) /HPF Urine Mucus (Auto) SLIGHT (NEGATIVE) /HPF Urine Culture Reflexed YES (NO) Urine Glucose NEGATIVE (NEGATIVE) mg/dL Urine HCG, Qual (Negative) Slides for Path Review YES 10/09/19 Range/Units 14:50 WBC (4.0-10.5) K/mm3 RBC (4.1-5.4) M/mm3 Hgb (12.0-16.0) gm/dl Hct (35-47) % MCV (78-100) fl MCH (26-32) pg MCHC (32-36) g/dl RDW (11.5-14.0) % Plt Count (150-450) K/mm3 MPV (6-9.5) fl Gran % (36.0-66.0) % Eos # (Auto) (0-0.5) Absolute Lymphs (auto) (1.0-4.6) Absolute Monos (auto) (0.0-1.3) Lymphocytes % (24.0-44.0) % Monocytes % (0.0-12.0) % Eosinophils % (0.00-5.0) % Basophils % (0.0-0.4) % Absolute Granulocytes (1.4-6.9) Basophils # (0-0.4) Sodium (137-145) mmol/L Potassium (3.5-5.1) mmol/L Chloride (98-107) mmol/L Carbon Dioxide (22-30) mmol/L Anion Gap (5-15) MEQ/L BUN (7-17) mg/dL Creatinine (0.52-1.04) mg/dL Estimated GFR ML/MIN Glucose (74-106) mg/dL Calcium (8.4-10.2) mg/dL Total Bilirubin (0.2-1.3) mg/dL AST (14-36) U/L ALT (0-35) U/L Alkaline Phosphatase (38-126) U/L Serum Total Protein (6.3-8.2) g/dL Albumin (3.5-5.0) g/dL Amylase (30-110) U/L Lipase (23-300) U/L Urine Color (YELLOW) Urine Appearance (CLEAR) Urine pH (5-6) Ur Specific [place] (1.005-1.025) Urine Protein (Negative) Urine Ketones (NEGATIVE) Urine Blood (0-5) [place]/ul Urine Nitrite (NEGATIVE) Urine Bilirubin (NEGATIVE) Urine Urobilinogen (0-1) mg/dL Ur Leukocyte Esterase (NEGATIVE) Urine WBC (Auto) (0-5) /HPF Urine RBC (Auto) (0-2) /HPF U Epithel Cells (Auto) (FEW) /HPF Urine Bacteria (Auto) (NEGATIVE) /HPF Urine Mucus (Auto) (NEGATIVE) /HPF Urine Culture Reflexed (NO) Urine Glucose (NEGATIVE) mg/dL Urine HCG, Qual NEGATIVE (Negative) Slides for Path Review - Radiology Impressions Radiology Exams & Impressions: Radiology Procedures Category Date Time Status ABDOMEN AND PELVIS W/0 CONTRAS [CT] Stat Exams 01/25/19 14:16 Completed Assessment/Plan (1) Acute pyelonephritis Current Visit: Yes Status: Acute Assessment & Plan: continue rocephin, IV fluids and zofran/dilaudid prn Code(s): N10 - ACUTE PYELONEPHRITIS (2) Vomiting Current Visit: No Status: Acute Code(s): R11.10 - VOMITING, UNSPECIFIED
[2019-01-26] MEDS: ROCEPHIN 1 Gm-D5w 50 ml Bag** 1 G/50 ML IVPB IV SCH (08:31)
[2019-01-26] MEDS: SYNTHROID 25 MCG PO SCH (08:31)
[2019-01-26] MEDS: PRISTIQ ER PO SCH (08:31)
[2019-01-27] MEDS: Sodium Chloride 0.9% 1000 ML 1,000 ML IV SCH (02:26)
[2019-01-27 05:00] LABS: Absolute Neutrophil Ct (ANC) 2.57 (1.4-6.9); BASOPHIL % 0.2 % (0.0-0.4); Basophil (Absolute #) 0.01 (0-0.4); Eosinophil % 0.7 % (0.00-5.0); Eosinophil (Absolute #) 0.03 (0-0.5); Hemoglobin 8.3 gm/dl (12.0-16.0); Lymphocyte (Absolute #) 0.86 (1.0-4.6); Lymphocytes % 20.6 % (24.0-44.0); Mean Cell Volume 84.1 fl (78-100); Mean Corpuscular Hgb Concent. 30.7 g/dl (32-36); Mean Platelet Volume 9.6 fl (6-9.5); Monocytes % 16.8 % (0.0-12.0); Neutrophil % 61.7 % (36.0-66.0); Platelet Count 184 K/mm3 (150-450); Red Blood Count 3.21 M/mm3 (4.1-5.4); Red Cell Distribution Width 16.8 % (11.5-14.0); White Blood Count 4.2 K/mm3 (4.0-10.5)
[2019-01-27 05:06] LABS: Mean Corpuscular Hemoglobin 25.8 pg (26-32)
[2019-01-27 05:13] LABS: ANION GAP 11.5 MEQ/L (5-15); CHLORIDE 106 mmol/L (98-107); Calcium 8.1 mg/dL (8.4-10.2); Carbon Dioxide 26 mmol/L (22-30); Creatinine 1 0.54 mg/dL (0.52-1.04); Glucose 93 mg/dL (74-106); Potassium 3.4 mmol/L (3.5-5.1); SODIUM 140 mmol/L (137-145)
[2019-01-27] MEDS: TYLENOL 325 MG PO PRN (05:17)
[2019-01-27 05:24] LABS: BLOOD UREA NITROGEN 2 mg/dL (7-17)
[2019-01-27] MEDS: SYNTHROID 25 MCG PO SCH (08:23)
[2019-01-27] MEDS: PRISTIQ ER PO SCH (08:23)
[2019-01-27] MEDS: ROCEPHIN 1 Gm-D5w 50 ml Bag** 1 G/50 ML IVPB IV SCH (08:23)
--- NOTE | 2019-01-27 09:00 | PCM.NOTE ---
Date and Time: 01/27/19 0858 Subjective Assessment: feeling better today, still has pressure with urination and flank pain but much improved, vomiting has resolved. Objective Exam General Appearance: no apparent distress Neurologic Exam: alert, oriented x 3 Respiratory Exam: normal breath sounds, lungs clear, No respiratory distress Cardiovascular Exam: regular rate/rhythm, normal heart sounds Gastrointestinal/Abdomen Exam: soft, No tenderness, No mass Back Exam: CVA tenderness (right) OBJECTIVE DATA Vital Signs: Vital Signs - 24 hr Temp Pulse Resp BP Pulse Ox 01/27/19 03:52 98.9 F 86 18 119/71 98 01/26/19 23:41 98.6 F 85 16 119/69 98 01/26/19 20:01 100.0 F 92 H 18 117/59 99 01/26/19 17:58 100.2 F 01/26/19 15:51 101.2 F 104 H 16 137/67 97 01/26/19 10:56 98.0 F 71 16 124/71 100 Pain Assessment - Last Documented Pain Intensity 8 Pain Scale Used 0-10 Pain Scale Intake and Output: Intake & Output 01/24/19 01/25/19 01/26/19 01/27/19 11:59 11:59 11:59 11:59 Intake Total 1347 3511 Output Total 3050 2750 Balance -1703 761 Weight 71.6 kg Lab Results: Lab Results-Last 24 Hours 01/27/19 01/27/19 Range/Units 04:42 04:42 WBC 4.2 (4.0-10.5) K/mm3 RBC 3.21 L (4.1-5.4) M/mm3 Hgb 8.3 L D (12.0-16.0) gm/dl Hct 27.0 L (35-47) % MCV 84.1 (78-100) fl MCH 25.8 L (26-32) pg MCHC 30.7 L (32-36) g/dl RDW 16.8 H (11.5-14.0) % Plt Count 184 D (150-450) K/mm3 MPV 9.6 H (6-9.5) fl Gran % 61.7 (36.0-66.0) % Eos # (Auto) 0.03 (0-0.5) Absolute Lymphs (auto) 0.86 L (1.0-4.6) Absolute Monos (auto) 0.70 (0.0-1.3) Lymphocytes % 20.6 L (24.0-44.0) % Monocytes % 16.8 H (0.0-12.0) % Eosinophils % 0.7 (0.00-5.0) % Basophils % 0.2 (0.0-0.4) % Absolute Granulocytes 2.57 (1.4-6.9) Basophils # 0.01 (0-0.4) Sodium 140 (137-145) mmol/L Potassium 3.4 L (3.5-5.1) mmol/L Chloride 106 (98-107) mmol/L Carbon Dioxide 26 (22-30) mmol/L Anion Gap 11.5 (5-15) MEQ/L BUN 2 L (7-17) mg/dL Creatinine 0.54 (0.52-1.04) mg/dL Estimated GFR > 60.0 ML/MIN Glucose 93 (74-106) mg/dL Calcium 8.1 L (8.4-10.2) mg/dL Radiology Exams: Radiology Procedures Category Date Time Status ABDOMEN AND PELVIS W/0 CONTRAS [CT] Stat Exams 01/25/19 14:16 Completed Assessment/Plan (1) Acute pyelonephritis Current Visit: Yes Status: Acute Assessment & Plan: on rocephin, culture pending. likely home tomorrow on po abx if remains afebrile and culture results are returned. Code(s): N10 - ACUTE PYELONEPHRITIS (2) Vomiting Current Visit: No Status: Acute Code(s): R11.10 - VOMITING, UNSPECIFIED (3) Anemia Current Visit: No Status: Acute Assessment & Plan: has chronic heavy periods, recommend otc iron supplement, worse from dilution secondary to IV fluids since admission. Code(s): D64.9 - ANEMIA, UNSPECIFIED
[2019-01-27 12:51] VITALS: O2SAT 100
--- NOTE | 2019-01-27 16:14 | PCM.DS ---
Discharge Summary Date of Admission: 01/25/19 17:20 Admitting Physician: TIFFANY STEINER Primary Care Provider: TIFFANY STEINER Allergies Allergies latex Allergy (Severe, Verified 01/25/19 14:10) Itchy Eyes Hospital Summary - Hospital Course Hospital Course: patient was admitted with pyelonephritis, growing e coli from urine. has been fever free on date of discharge, tolerating po and feeling much better. home on po abx - Vitals & Intake/Output Vital Signs: Vital Signs Temperature 98.5 F 01/27/19 12:50 Pulse Rate 75 01/27/19 12:50 Respiratory Rate 16 01/27/19 12:50 Blood Pressure 133/87 01/27/19 12:50 O2 Sat by Pulse Oximetry 100 01/27/19 12:50 Intake & Output: Intake & Output 01/25/19 01/26/19 01/27/19 01/28/19 11:59 11:59 11:59 11:59 Intake Total 1347 3511 480 Output Total 3050 2750 400 Balance -1703 761 80 Weight 71.6 kg 71.1 kg - Lab Result Diagrams: 01/27/19 04:42 01/27/19 04:42 Lab Results-Last 24 Hrs: Lab Results-Last 24 Hours 01/27/19 01/27/19 Range/Units 04:42 04:42 WBC 4.2 (4.0-10.5) K/mm3 RBC 3.21 L (4.1-5.4) M/mm3 Hgb 8.3 L D (12.0-16.0) gm/dl Hct 27.0 L (35-47) % MCV 84.1 (78-100) fl MCH 25.8 L (26-32) pg MCHC 30.7 L (32-36) g/dl RDW 16.8 H (11.5-14.0) % Plt Count 184 D (150-450) K/mm3 MPV 9.6 H (6-9.5) fl Gran % 61.7 (36.0-66.0) % Eos # (Auto) 0.03 (0-0.5) Absolute Lymphs (auto) 0.86 L (1.0-4.6) Absolute Monos (auto) 0.70 (0.0-1.3) Lymphocytes % 20.6 L (24.0-44.0) % Monocytes % 16.8 H (0.0-12.0) % Eosinophils % 0.7 (0.00-5.0) % Basophils % 0.2 (0.0-0.4) % Absolute Granulocytes 2.57 (1.4-6.9) Basophils # 0.01 (0-0.4) Sodium 140 (137-145) mmol/L Potassium 3.4 L (3.5-5.1) mmol/L Chloride 106 (98-107) mmol/L Carbon Dioxide 26 (22-30) mmol/L Anion Gap 11.5 (5-15) MEQ/L BUN 2 L (7-17) mg/dL Creatinine 0.54 (0.52-1.04) mg/dL Estimated GFR > 60.0 ML/MIN Glucose 93 (74-106) mg/dL Calcium 8.1 L (8.4-10.2) mg/dL Micro Results-Entire Visit: Microbiology 01/25/19 14:50 Urine Culture - Final Urine, Void Escherichia Coli Discharge Exam General Appearance: no apparent distress, alert Eye Exam: PERRL, EOMI, eyes nml inspection Respiratory Exam: normal breath sounds, lungs clear, No respiratory distress Cardiovascular Exam: regular rate/rhythm, normal heart sounds Gastrointestinal/Abdomen Exam: soft, No tenderness, No mass Back Exam: normal inspection, normal range of motion, CVA tenderness (mild on the right), No vertebral tenderness Final Diagnosis/Problem List - Final Discharge Diagnosis/Problem (1) Acute pyelonephritis Current Visit: Yes Status: Acute Assessment & Plan: home on bactrim, sens e coli on culture Code(s): N10 - ACUTE PYELONEPHRITIS (2) Vomiting Current Visit: No Status: Acute Code(s): R11.10 - VOMITING, UNSPECIFIED (3) Anemia Current Visit: No Status: Acute Code(s): D64.9 - ANEMIA, UNSPECIFIED - Discharge Disposition: Home, Self-Care Condition: Good Prescriptions: New Sulfamethoxazole/Trimethoprim [Bactrim Ds Tablet] 1 each PO BID #14 tablet Continue Levothyroxine Sodium 25 Mcg [Synthroid 25 Mcg] 25 mcg PO DAILY Alprazolam 0.5 mg [xanAX 0.5 MG] 0.5 mg PO DAILY PRN PRN PRN Reason: Anxiety Desvenlafaxine Succinate [Desvenlafaxine Succinate ER] 50 mg PO DAILY Instructions: Urinary Tract Infections in Adults Additional Instructions: drink plenty of water, return for persistent vomiting, high persistent fever or worsening condition. Follow up with: TIFFANY STEINER MD [Primary Care Provider] - 02/08/19 10:00 am
[2019-01-27 16:18] VITALS: BP 121/84; PULSE 78
== END 2019-01-27 17:10 | disposition home or self-care (01) ==
LOC: ED 13:45 → MED SURG 17:20
PROVIDERS: ADMIT Family Medicine; ATTEND Family Medicine
DX: N10 Acute pyelonephritis (principal); B96.20 Unspecified Escherichia coli [E. coli] as the cause of diseases classified elsewhere; R11.10 Vomiting, unspecified; D64.9 Anemia, unspecified; Z79.899 Other long term (current) drug therapy; I10 Essential (primary) hypertension
CPT/HCPCS: 36000; 36415; 74176; 80048; 80053; 81001; 82150; 83690; 84703; 85025; 87077; 87086; 87186; 96360; 96361; 96365; 96374; 96375; 96376; 99285; G0378; J0696; J1170; J1885; J2405; A9270-GY